=== PATIENT | female | born 1965 | race Hispanic/Latino ===

== ENCOUNTER 2018-04-23 18:24 | Inpatient (IN) | payer BC ==
[2018-04-23] MEDS ORDERED: Ondansetron PF 4 MG/2 ML Vial IVP PRN (18:26)
[2018-04-23] MEDS ORDERED: Ketorolac Tromethamine 60 MG/2 ML VIAL IM PRN (19:13)
--- NOTE | 2018-04-23 19:33 | PDOC.FPRHP ---
- History of Present Illness Chief Complaint: epigastric pain History of Present Illness: Ms. Jerome presents as direct admit from Dr. Lopez's office. Reports epigastric/RUQ pain that began suddenly this morning. Pain sharp, localized, feels like bloating and worsened throughout day. Had to leave work due to pain that caused her to moan. Took 2 ibuprofen. Last ate a small bit of sandwich at 11:15 this am. Presented to PCP and sent for RUQ US which showed gallbladder distention, common bile duct 0.7cm. Pain has now improved to 0/10, no discomfort in car ride here. Denies N/V/diarrhea, fever. Last week patient treated for URI with steroid injection and has been on amoxacillin. - Allergies/Adverse Reactions Allergies Allergy/AdvReac Type Severity Reaction Status Date / Time No Known Allergies Allergy Verified 04/23/18 20:53 - History PMHx: Hypothyroid, HLD, HTN PSHx: Hysterectomy with 1 ovary remaining FHx: father-pancreatic CA, DM. Mother-ovarian CA. Brother CAD Social: Denies tobacco or drug use. Social alcohol use. - Review of Systems General: reports: weight/appetite/sleep changes. denies: fever/chills ENT: denies: nasal congestion, rhinorrhea Respiratory: reports: cough. denies: shortness of breath Cardiovascular: denies: palpitation, edema Gastrointestinal: reports: abdominal pain. denies: nausea, vomiting, diarrhea, constipation Genitourinary: denies: incontinence Skin: denies: rashes, lesions Musculoskeletal: denies: pain, tenderness Neurological: denies: numbness, weakness - Vital signs BP: 147/78 HR: 62 RR: 16 Tmax: 98 Pox: 98% on RA - Physical Exam Constitutional: NAD, awake, alert and oriented HEENT: normocephalic and atraumatic Heart: RRR, normal S1/S2, no murmurs/rubs/gallops Lungs: CTAB, no respiratory distress Abdomen: soft, non-tender, no masses/distention Musculoskeletal: normal structure Neurological: no focal deficit Skin: no rash/lesions, good turgor Heme/Lymphatic: no unusual bruising or bleeding Psychiatric: normal mood and affect FMR H&P: A/P - Problem List (1) Acute cholecystitis Current Visit: Yes Status: Acute Code(s): K81.0 - ACUTE CHOLECYSTITIS (2) Common bile duct dilation Current Visit: Yes Status: Acute Code(s): K83.8 - OTHER SPECIFIED DISEASES OF BILIARY TRACT (3) HTN (hypertension) Current Visit: Yes Status: Chronic Code(s): I10 - ESSENTIAL (PRIMARY) HYPERTENSION (4) HLD (hyperlipidemia) Current Visit: Yes Status: Chronic Code(s): E78.5 - HYPERLIPIDEMIA, UNSPECIFIED (5) Hypothyroid Current Visit: Yes Status: Chronic Code(s): E03.9 - HYPOTHYROIDISM, UNSPECIFIED (6) Hyperbilirubinemia Current Visit: Yes Status: Acute Code(s): E80.6 - OTHER DISORDERS OF BILIRUBIN METABOLISM (7) Elevated transaminase level Current Visit: Yes Status: Acute Code(s): R74.0 - NONSPEC ELEV OF LEVELS OF TRANSAMNS & LACTIC ACID DEHYDRGNSE - Plan 52 yo F with PMH HTN, hypothyroid directly admitted by Dr. Lopez for epigastric/RUQ pain. Acute cholecystitis vs ascending cholangitis - RUQ US showed gallbladder distention and dilation with cholelithiasis, sludge , positive Coleman's sign. Borderline mild common bile duct dilatation at 0.7cm - pain now improved, no fever or white count - General surgery, Dr. Prather contacted by PCP. Will await further recommendations in am. - Blood cx pending - NPO, IVF LR @ 150 - Ketoralac and zofran prn - Started zosyn (04/23) Elevated transaminases - AST 696, ALT 421 - 2/2 above will monitor on morning CMP Hyperbilirubinemia - T bili 2.5 - 2/2 above, will monitor on morning CMP Hypothyroid - continue home synthroid when med rec complete HTN - continue home med when med rec complete HLD - continue home statin when med rec complete Diet: NPO, meds with sips Ppx: SCDs Code: FULL Dispo: admit to surgical floor inpatient FMR H&P: Upper Level - Pertinent history 52 y/o F presents as a direct admit from PCP's office from suspected acute cholecystitis. Was seen earlier today for evaluation of chills and cramping abdominal pain w/ radiation into her back and noted to have significant RUQ pain on exam. RUQ U/S w/ evidence of wall thickening, cholelithiaisis, biliary sludge, and borderline CBD at [address] Prather of general surgery was contacted by pt's PCP w/ plan to start on IV abx and IVF overnight w/ repeat LFT 's in the AM. - Pertinent findings RUQ U/S - 7 mm CBD, cholelithiasis and biliary sludge, GB wall thickening noted WBC - 10.8 Neut - 84.7% T. bili. 2.5 AST -696 ALT - 421 GFR - 70 GEN: NAD, resting in bed CARD: RRR, no mumur PULM: CTA-b/l GI: Normoactive BS, TTP RUQ, postive coleman's sign. Soft, no rigidity. Conscious guarding - Plan Date/Time: 04/23/181915 IMatthew MD, have evaluated this patient and agree with findings/plan as outlined by chemical engineering intern resident. Pertinent changes/additions are listed here. 52 y/o F w/: 1) Acute cholecystitis vs Ascending Cholangitis - Pt w/ chills, bilirubin >2 and borderling CBD distention noted on RUQ U/S along w/ cholelithiasis and GB wall thickening - Dr. Prather of general surgery contacted by Dr. Lopez for further evaluation - Will place patient on emperic abx coverage for enteric faustino w/ Zosyn and IVF w/ LR at 150 mL/Hr w/ strict I/O's - Obtain BCx - Repeat CMP and CBC in the AM to monitor leukocytosis and and LFT's - Will plan for biliary drainage per Gen surg or GI pending Gen surg recs within the first 24-48 hours - Pain control w/ IM toradol as to not cause undue contraction of the sphincter of oddi w/ morphine use 2) Other chronic medical problems per chemical engineering intern note Assessment and Plan discussed w/ Dr. Germaine Ledesma who is in agreement. Attending Addendum - Attending Addendum Date/Time: 04/23/182207 I personally evaluated the patient and discussed the management with Dr. Mardid and Dr. Dawson I agree with the History, Examination, Assessment and Plan documented above with any addition or exceptions noted below. 52 yo female with hx of HTN, HLD, and hypothyroidism admitted for epigastric pain. Patient seen earlier today by PCP. Concerns raised for gallbladder disease. Labs and ultrasound performed outpatient. Noted to be abnormal. Directly admitted for acute cholecystitis vs ascending cholangitis. Currently patient reports symptoms are controlled. Has not eaten since 11:00 today. Gen Surg notified. Will start empiric antibiotics and IVFs. Repeat labs in AM. Possible surg in AM vs endoscopic procedure. No evidence of acute abdomen on exam. Ismael
[2018-04-23] MEDS ORDERED: Calcium Carbonate 500 MG ChewTAB PO PRN (20:05)
[2018-04-23] MEDS: Lactated Ringer's 1,000 ML IV SCH ×2 (21:14→23:27)
[2018-04-23] MEDS: Piperacillin/Tazobactam 3.375 GM in Sodium Chloride 0.9% 100 ML IVPB SCH ×2 (21:15→23:30)
[2018-04-23] MEDS: Ketorolac Tromethamine 30 MG/ML VIAL IM SCH (21:16)
[2018-04-23] MEDS ORDERED: Ketorolac Tromethamine 30 MG/ML VIAL IM SCH (23:30)
[2018-04-23 23:34] VITALS: BMI 37.9
[2018-04-24] MEDS: Ketorolac Tromethamine 30 MG/ML VIAL IM SCH
--- NOTE | 2018-04-24 05:49 | PDOC.FM ---
- Subjective Subjective: Pain is resolved this morning. She denies nausea, vomiting, and abdominal pain. She states she did well overnight. - Objective MAR Reviewed: Yes Vital Signs & Weight: Vital Signs (12 hours) Temp Pulse Resp BP Pulse Ox 04/24/18 04:00 98.1 F 64 16 122/72 98 04/24/18 00:00 98.7 F 69 16 145/83 H 97 04/23/18 20:00 98 F 62 16 147/78 H 98 04/23/18 19:48 98.2 F 62 18 128/73 98 Weight Weight 97.069 kg Result Diagrams: 04/24/18 05:04 04/24/18 05:15 Phys Exam - Physical Examination Constitutional: NAD HEENT: moist MMs Neck: no nodes, no JVD Respiratory: no wheezing, no rales, clear to auscultation bilateral Cardiovascular: RRR, no significant murmur Gastrointestinal: soft, non-tender, no distention, positive bowel sounds Musculoskeletal: no edema, pulses present Neurological: moves all 4 limbs Psychiatric: normal affect, A&O x 3 Skin: cap refill <2 seconds Dx/Plan (1) Acute cholecystitis Code(s): K81.0 - ACUTE CHOLECYSTITIS Status: Acute (2) Common bile duct dilation Code(s): K83.8 - OTHER SPECIFIED DISEASES OF BILIARY TRACT Status: Acute (3) Hyperbilirubinemia Code(s): E80.6 - OTHER DISORDERS OF BILIRUBIN METABOLISM Status: Acute (4) HLD (hyperlipidemia) Code(s): E78.5 - HYPERLIPIDEMIA, UNSPECIFIED Status: Chronic (5) HTN (hypertension) Code(s): I10 - ESSENTIAL (PRIMARY) HYPERTENSION Status: Chronic (6) Hypothyroid Code(s): E03.9 - HYPOTHYROIDISM, UNSPECIFIED Status: Chronic - Plan Plan: This is a 52 yo female with a pmh of HTN and hypothyroidism Acute cholecystitis with common bile duct dilatation -RUQ US shows gallbladder distension and dilatation with cholelithiasis, sludge , positive cutler's sign. -CBD is dilated at 7mm -Afebrile overnight -General surgery, Dr. Prather contacted by PCP. We will appreciate his recommendations -Blood cultures pending -NPO, LR at 150 -Zosyn (04/23) -We will add morphine if pt begins having worsening pain Elevated transaminase -AST 696, ALT 421, Likely 2/2 to above Hyperbilirubinema -Total bili 2.5, likely 2/2 to above Hypothyroidism -Continue home meds when we obtain med list HTN -Continue home meds when we obtain med list HLD -Continue home meds when we obtain med list
[2018-04-24 05:51] LABS: #Basophils 0.1 thou/uL (0.0-0.2); #Eosinphils 0.4 thou/uL (0.0-0.7); #Monocytes 0.5 thou/uL (0.11-0.59); #Neutrophils 3.7 thou/uL (1.40-6.50); %Basophils 1.3 % (0.0-1.0); %Eosinophils 5.7 % (0.0-10.0); %Lymphocytes 29.9 % (21.0-51.0); %Monocytes 7.1 % (0.0-10.0); Hemoglobin 14.2 g/dL (12.0-16.0); Mean Corpuscular HGB CONC 32.8 g/dL (32.0-36.0); Mean Corpuscular Hemoglobin 29.5 pg (27.0-31.0); Mean Corpuscular Volume 89.8 fL (78.0-98.0); Mean Platelet Volume 8.3 fL (7.4-10.4); Platelet Count 250 thou/uL (130-400); RBC Distribution Width 11.3 % (11.5-14.5); Red Blood Cell (RBC) Count 4.83 mill/uL (4.20-5.40); White Blood Cell (WBC) Count 6.7 thou/uL (4.8-10.8)
[2018-04-24] MEDS: Piperacillin/Tazobactam 3.375 GM in Sodium Chloride 0.9% 100 ML IVPB SCH ×3 (06:07→11:42)
[2018-04-24 06:24] LABS: ALT (SGPT) 764 U/L (8-55); AST (SGOT) 791 U/L (5-34); Albumin 3.9 g/dL (3.5-5.0); Alkaline Phosphatase 182 U/L (40-150); Anion Gap 10 mmol/L (10-20); BUN (Urea Nitrogen) 11 mg/dL (7.0-18.7); Bilirubin, Total 2.2 mg/dL (0.2-1.2); Calc. Creatinine Clearance 115 mL/min (70-130); Calcium 9.9 mg/dL (7.8-10.44); Carbon Dioxide 26 mmol/L (22-29); Chloride 103 mmol/L (98-107); Estimated GFR-MDRD 66; Globulin 3.3 g/dL (2.4-3.5); Glucose 106 mg/dL (70-105); Potassium 4.4 mmol/L (3.5-5.1); Protein, Total 7.2 g/dL (6.0-8.3); Sodium 135 mmol/L (136-145)
[2018-04-24] MEDS: Lactated Ringer's 1,000 ML IV SCH ×3 (06:24→14:28)
--- NOTE | 2018-04-24 13:00 | PRG ---
DATE OF SERVICE: 04/24/2018 ADDENDUM: This is an addendum to the note of Dr. Lio Parker. Ms. Jerome is a very pleasant female, who is admitted with abdominal pain late yesterday. She has been found to have acute cholecystitis and has already been seen by the surgeon. She also has an elevated bilirubin and dilated common duct and suggesting the possibility of choledocholithiasis. An intraoperative cholangiogram will be performed and she will be taken to surgery at approximately 2 o'clock this afternoon. We will continue to follow with the surgery team. Job ID: [id number]
[2018-04-24] MEDS ORDERED: Iothalamate Meglumine 60% 50 ML VIAL FS ONE (14:51)
[2018-04-24] MEDS ORDERED: Bupivacaine/Epinephrine 0.25% 30 ML VIAL ONE (14:51)
[2018-04-24] MEDS ORDERED: Famotidine/PF 20 mg/2ml Vial ONE (15:02)
[2018-04-24] MEDS ORDERED: Fentanyl 100 MCG/2 ML VIAL ONE ×3 (15:02→16:33)
--- NOTE | 2018-04-24 15:06 | CON ---
DATE OF CONSULTATION: 04/24/2018 CHIEF COMPLAINT: Upper abdominal pain. HISTORY OF PRESENT ILLNESS: Ms. Jerome is a 52-year-old female, no known history of gallstones, jaundice, pancreatitis, who presents with acute onset of upper abdominal pain, epigastric, right upper quadrant. Described as sharp 8/10, associated with nausea, no vomiting, admitted to the hospital from Dr. Lopez's office overnight. Pain is actually improved today. No nausea. She only has pain on exam. PAST MEDICAL HISTORY: Includes hypothyroid and hypertension. PAST SURGICAL HISTORY: Hysterectomy. SOCIAL HISTORY: Social alcohol use. No smoking or other drugs. REVIEW OF SYSTEMS: Ten-system review of system otherwise negative unless described above. PHYSICAL EXAMINATION: VITAL SIGNS: Blood pressure is 115/61, pulse 60, respirations 18, and temperature 98.1. HEENT: Sclerae anicteric. Oropharynx clear. NECK: No adenopathy. CHEST: Clear. HEART: Regular rate and rhythm. ABDOMEN: Soft, tender in the right upper quadrant, localized guarding. No rebound. No abdominal hernias. EXTREMITIES: No ischemia or edema to the extremities. LABORATORY DATA: White cell count is 6, hemoglobin 14, and platelet count is 250. Sodium 135, potassium 4.4, creatinine 0.9, glucose 106, bilirubin is down from 2.5 to 2.2, and alkaline phosphatase 182. ASSESSMENT: Acute cholecystitis with elevated liver function tests. PLAN: Laparoscopic cholecystectomy with intraoperative cholangiogram. Risks, benefits, and alternatives were discussed. She has consent. We will do this today. Job ID: [id number]
[2018-04-24] MEDS ORDERED: Promethazine HCl 25 MG/ML VIAL IM PRN ×2 (15:57→16:38)
[2018-04-24] MEDS ORDERED: Promethazine HCl 25 MG/ML VIAL SLOW IVP PRN (15:57)
[2018-04-24] MEDS ORDERED: HYDROmorphone 2 MG/ML VIAL SLOW IVP PRN (15:57)
[2018-04-24] MEDS ORDERED: Meperidine HCl/PF 25 MG/ML VIAL SLOW IVP PRN (15:57)
[2018-04-24] MEDS ORDERED: hydrALAZINE 20 MG/ML VIAL SLOW IVP PRN (16:38)
[2018-04-24] MEDS ORDERED: Mag-Al 1200 mg/1200 mg/30 ML UDCUP PO PRN (16:38)
[2018-04-24] MEDS ORDERED: Calcium Carbonate 500 MG ChewTAB PO PRN (16:38)
[2018-04-24] MEDS ORDERED: Ondansetron PF 4 MG/2 ML Vial IVP PRN (16:38)
[2018-04-24] MEDS ORDERED: Dextrose 50% Abboject 50 ML SYRINGE SLOW IVP PRN (16:38)
[2018-04-24] MEDS ORDERED: Dextrose 5% in Water 1,000 ML IV PRN (16:38)
[2018-04-24] MEDS ORDERED: Morphine 2 MG/ML SYRINGE SLOW IVP PRN (17:03)
[2018-04-24] MEDS ORDERED: Morphine 4 MG/ML VIAL SLOW IVP PRN (17:15)
[2018-04-24] MEDS: D5 1/2 NS w/20 mEq KCL 1,000 ML IV SCH (17:45)
--- NOTE | 2018-04-24 18:16 | RAD ---
CHOLANGIOGRAM IN SURGERY 04/24/18 COMPARISON: Gallbladder ultrasound 04/23/18. HISTORY: Cholelithiasis with enlargement of the common bile duct. FINDINGS/IMPRESSION: Two limited intraoperative fluoroscopic views from a cholangiogram taken in surgery were performed. C ontrast is seen within the cystic duct, common bile duct, and duodenum. No obvious filling defects ar e seen on the last image. POS: OSMAR
[2018-04-24] MEDS: HYDROcodone/Acetaminophen 10/325 mg Tablet PO PRN (19:35)
[2018-04-24] MEDS: Famotidine 20 MG TAB PO SCH (20:33)
[2018-04-24] MEDS ORDERED: Atorvastatin Calcium 20 MG TAB PO SCH (21:00)
[2018-04-24] MEDS: Famotidine/PF 20 mg/2ml Vial SLOW IVP SCH (23:01)
[2018-04-25] MEDS: HYDROcodone/Acetaminophen 10/325 mg Tablet PO PRN ×2 (01:09→10:27)
--- NOTE | 2018-04-25 02:40 | OP ---
DATE OF PROCEDURE: 04/24/2018 PREOPERATIVE DIAGNOSES: 1. Acute cholecystitis. 2. Elevated liver function tests. POSTOPERATIVE DIAGNOSIS: 1. Acute cholecystitis. 2. Elevated liver function tests. PROCEDURE PERFORMED: Laparoscopic cholecystectomy with intraoperative cholangiogram. ANESTHESIA: General. ESTIMATED BLOOD LOSS: Minimal. COMPLICATIONS: None. SPECIMEN: Gallbladder. FINDINGS: Acute cholecystitis. Cholangiogram shows dilated common bile duct with no obvious distal common bile duct obstruction. DESCRIPTION OF PROCEDURE: The patient was taken to the operating room, laid in supine position on the operating room table. After general anesthetic was obtained, the abdomen was prepped and draped in a sterile fashion. A straight incision was made above the umbilicus. Cautery was used to dissect down to and score the fascia. Abdominal cavity was entered bluntly using Buffy clamp. Holding stitch of PDS was placed on each side of the fascia. Clayton trocar was placed. High-flow pneumoperitoneum was obtained. Upper midline 5 mm port and 2 right upper quadrant 5 mm ports were placed under direct visualization. Gallbladder was retracted from the gallbladder fossa. The peritoneum was opened anteriorly and posteriorly. The critical view triangle was seen showing only the cystic duct and cystic artery branching medial to lateral. There were no other branching structures. A clip was placed on the cystic duct. A small ductotomy was made just proximal to that. A cholangiocatheter was brought in through a separate stab incision, and a cholangiogram was performed, which showed good contrast flow into the duodenum. There was initially a question of filling defect, but it appeared that they disappeared with further contrast. There was good contrast flow into the duodenum without obstruction. Cholangiocatheter was removed, and three clips were placed proximally on the cystic duct, it was cut using laparoscopic scissors. Cystic artery was taken using two clips proximally and one clip distally, and cut using laparoscopic scissors. Cautery was used to dissect the gallbladder out of the gallbladder fossa. Gallbladder was placed in an EndoCatch bag and brought out through the Clayton. There was no bleeding in the liver bed. The right upper quadrant was irrigated using sterile solution until returns were clear. All port sites were infiltrated using local anesthetic. All ports were removed under camera visualization. Pneumoperitoneum was let down. PDS used to close the fascial defect above the umbilicus. All incisions were irrigated and closed using 4-0 Monocryl and Dermabond. The patient was sent to Recovery in stable condition. All instrument counts, needle counts, and lap counts were correct. Job ID: [id number]
[2018-04-25] MEDS: D5 1/2 NS w/20 mEq KCL 1,000 ML IV SCH (04:49)
--- NOTE | 2018-04-25 05:22 | PDOC.FM ---
- Subjective Subjective: Pt states she is doing better. Her pain is improved. She denies nausea, vomiting , or SOB. She tolerated PO yesterday. - Objective MAR Reviewed: Yes Vital Signs & Weight: Vital Signs (12 hours) Temp Pulse Resp BP Pulse Ox 04/25/18 04:00 98.1 F 57 L 16 135/89 95 04/24/18 23:37 98.4 F 58 L 16 121/65 96 04/24/18 20:33 95 04/24/18 20:00 98.2 F 84 16 128/80 95 04/24/18 19:38 96 Weight Weight 97.069 kg I&O: 04/23/18 04/24/18 04/25/18 06:59 06:59 06:59 Intake Total 1790 Balance 1790 Result Diagrams: 04/25/18 05:41 04/25/18 05:41 Phys Exam - Physical Examination Constitutional: NAD HEENT: moist MMs Neck: no JVD, supple Respiratory: no wheezing, clear to auscultation bilateral Cardiovascular: RRR, no significant murmur Gastrointestinal: soft, no distention, positive bowel sounds mild diffuse tenderness, no rebound Musculoskeletal: no edema, pulses present Neurological: moves all 4 limbs Psychiatric: normal affect, A&O x 3 Skin: cap refill <2 seconds Dx/Plan (1) Acute cholecystitis Code(s): K81.0 - ACUTE CHOLECYSTITIS Status: Acute (2) Common bile duct dilation Code(s): K83.8 - OTHER SPECIFIED DISEASES OF BILIARY TRACT Status: Acute (3) Hyperbilirubinemia Code(s): E80.6 - OTHER DISORDERS OF BILIRUBIN METABOLISM Status: Acute (4) HLD (hyperlipidemia) Code(s): E78.5 - HYPERLIPIDEMIA, UNSPECIFIED Status: Chronic (5) HTN (hypertension) Code(s): I10 - ESSENTIAL (PRIMARY) HYPERTENSION Status: Chronic (6) Hypothyroid Code(s): E03.9 - HYPOTHYROIDISM, UNSPECIFIED Status: Chronic - Plan Plan: This is a 52 yo female with a pmh of HTN and hypothyroidism Acute cholecystitis with common bile duct dilatation -RUQ US shows gallbladder distension and dilatation with cholelithiasis, sludge , positive cutler's sign. -CBD is dilated at 7mm -Dr. Prather performed laparoscopic cholecystectomy with intraoperative cholangiogram -Pain is being controlled with norco, no break through morphine needed at this time -Fat restricted diet, if pt tolerates this well, we will likely discharge her later this morning Elevated transaminase -The are trending down Hyperbilirubinema -WNL Hypothyroidism -Continue home meds when we obtain med list HTN -Continue home meds when we obtain med list HLD -Continue home meds when we obtain med list
[2018-04-25] MEDS ORDERED: Levothyroxine Sodium 112 MCG TAB PO SCH (06:00)
[2018-04-25] MEDS ORDERED: Levothyroxine Sodium 125 MCG TAB PO SCH (06:00)
[2018-04-25 06:28] LABS: #Eosinphils 0.1 thou/uL (0.0-0.7); #Lymphocytes 1.6 thou/uL (1.20-3.40); #Monocytes 0.5 thou/uL (0.11-0.59); #Neutrophils 6.7 thou/uL (1.40-6.50); %Basophils 0.3 % (0.0-1.0); %Eosinophils 0.6 % (0.0-10.0); %Lymphocytes 17.7 % (21.0-51.0); %Monocytes 5.1 % (0.0-10.0); %Neutrophils 76.3 % (42.0-75.0); Hemoglobin 12.3 g/dL (12.0-16.0); Mean Corpuscular HGB CONC 32.9 g/dL (32.0-36.0); Mean Corpuscular Volume 91.3 fL (78.0-98.0); Mean Platelet Volume 8.4 fL (7.4-10.4); Platelet Count 235 thou/uL (130-400); RBC Distribution Width 11.3 % (11.5-14.5); Red Blood Cell (RBC) Count 4.09 mill/uL (4.20-5.40); White Blood Cell (WBC) Count 8.8 thou/uL (4.8-10.8)
[2018-04-25 06:47] LABS: ALT (SGPT) 477 U/L (8-55); AST (SGOT) 223 U/L (5-34); Albumin 3.5 g/dL (3.5-5.0); Alkaline Phosphatase 151 U/L (40-150); Anion Gap 10 mmol/L (10-20); BUN (Urea Nitrogen) 11 mg/dL (7.0-18.7); Bilirubin, Total 0.6 mg/dL (0.2-1.2); Calc. Creatinine Clearance 124 mL/min (70-130); Carbon Dioxide 28 mmol/L (22-29); Chloride 106 mmol/L (98-107); Estimated GFR-MDRD 73; Globulin 2.7 g/dL (2.4-3.5); Glucose 126 mg/dL (70-105); Potassium 4.2 mmol/L (3.5-5.1); Protein, Total 6.2 g/dL (6.0-8.3); Sodium 140 mmol/L (136-145)
[2018-04-25] MEDS: Famotidine 20 MG TAB PO SCH (08:58)
[2018-04-25] MEDS ORDERED: Fluticasone Propionate Nasal Spray 16 gm Bottle NASAL SCH (09:00)
[2018-04-25] MEDS: Famotidine/PF 20 mg/2ml Vial SLOW IVP SCH (09:00)
[2018-04-25] MEDS ORDERED: Triamterene/Hydrochlorothiazide 37.5 mg/25 mg Tablet PO SCH (09:00)
--- NOTE | 2018-04-25 12:06 | PRG ---
DATE OF SERVICE: 04/25/2018 SUBJECTIVE: Ms. Jerome is postop day #1 from her laparoscopic cholecystectomy yesterday. Her intraoperative cholangiogram did not show any filling defects. She is tolerating her diet and will likely be discharged later today if okay with Surgery. Job ID: [id number]
[2018-04-25 12:18] VITALS: BP 122/76; TEMP 98.6
--- NOTE | 2018-04-26 11:29 | DIS ---
DATE OF ADMISSION: 04/23/2018 DATE OF DISCHARGE: 04/25/2018 ADMITTING ATTENDING: Germaine Ledesma MD DISCHARGE ATTENDING: Brenton Montez MD RESIDENT: Lio Parker DO CONSULTS: General Surgery, Dr. Prather. PROCEDURES: 1. Gallbladder ultrasound showing gallbladder wall distension, dilation with cholelithiasis as well as gallbladder sludge, positive Coleman sign. CBD is dilated at 7 mm. 2. Intraoperative cholangiogram showing contrast within the cystic duct, common bile duct and duodenum with no obvious filling defects. 3. Laparoscopic cholecystectomy with intraoperative cholangiogram. PRIMARY DIAGNOSIS: Cholecystitis secondary to cholelithiasis. SECONDARY DIAGNOSES: Elevated transaminases, hyperbilirubinemia, hypothyroidism, hypertension, hyperlipidemia. DISCHARGE MEDICATIONS: 1. Pepcid 20 mg p.o. q.12 hours. 2. Tramadol 50 mg p.o. q.6 hours p.r.n. pain. 3. Maalox 15 mL p.o. q.6 hours p.r.n. 4. Pepcid. 5. Atorvastatin 10 mg p.o. at bedtime. 6. Vitamin D 5000 mg p.o. at bedtime. 7. Flonase 1 spray per nostril daily. 8. Levothyroxine 112 mcg p.o. daily. 9. Sertraline 100 mg p.o. daily. 10. Triamterene/hydrochlorothiazide 37.5/25 mg one tab p.o. daily. DISCONTINUED MEDICATIONS: None. BRIEF HISTORY OF PRESENT ILLNESS/HOSPITAL COURSE: This is a direct admit from Dr. Ledesma's office with concern for ascending cholangitis due to hyperbilirubinemia, abdominal pain, as well as subjective chills. acute cholecystitis ascending cholangitis due to the patient's presentation. Surgery was consulted and the above procedures were performed. The patient tolerated the procedures well and tolerated diet prior to discharge. The patient's pain was controlled with oral medications prior to discharge. DISPOSITION: Stable. DISCHARGE INSTRUCTIONS: 1. Location: Home. 2. Diet: Diabetic, low fat. 3. Activity: No heavy lifting. 4. Followup: With Dr. Lopez in [address] Prather in 14 days. Job ID: [id number]
== END 2018-04-25 12:55 | disposition home or self-care (01) | DRG 419 ==
LOC: SURG A 19:38
PROVIDERS: ADMIT Family Medicine; ATTEND Family Medicine
PROC: 0FT44ZZ Resection of Gallbladder, Percutaneous Endoscopic Approach (ICD-10-PCS; principal; 2018-04-24)
PROC: BF101ZZ Fluoroscopy of Bile Ducts using Low Osmolar Contrast (ICD-10-PCS; 2018-04-24)
DX: K80.00 Calculus of gallbladder with acute cholecystitis without obstruction (principal); E03.9 Hypothyroidism, unspecified; I10 Essential (primary) hypertension; E78.5 Hyperlipidemia, unspecified; E80.6 Other disorders of bilirubin metabolism; R74.0 Nonspecific elevation of levels of transaminase and lactic acid dehydrogenase [LDH]; K83.8 Other specified diseases of biliary tract
CPT/HCPCS: 36415; 47532; 80053; 85025; 87040; 88304; 96374; J0131; J1610; J1885; J2543; J3010; J7050; Q9961; S0028

== ENCOUNTER 2018-10-25 10:29 | Outpatient (CLI) | payer BC ==
--- NOTE | 2018-10-25 11:19 | MMO ---
Bilateral MAMMO Bilat Screen [facility]. CLINICAL HISTORY: Patient is 52 years old and is seen for screening. VIEWS: The views performed were: bilateral craniocaudal with tomosynthesis and bilateral mediolateral oblique with tomosynthesis. MAMMOGRAM FINDINGS: The breasts are heterogeneously dense, which could obscure a lesion on mammography. There are no suspicious masses, suspicious calcifications, or new areas of architectural distortion. IMPRESSION: THERE IS NO MAMMOGRAPHIC EVIDENCE OF MALIGNANCY. A ROUTINE FOLLOW-UP MAMMOGRAM IN 1 YEAR IS RECOMMENDED. THE RESULTS OF THIS EXAM WERE SENT TO THE PATIENT. ACR BI-RADS Category 1 - Negative MAMMOGRAPHY NOTE: 1. A negative mammogram report should not delay a biopsy if a dominant of clinically suspicious mass is present. 2. Approximately 10% to 15% of breast cancers are not detected by mammography. 3. Adenosis and dense breasts may obscure an underlying neoplasm.
== END 2018-10-25 10:30 | disposition home or self-care (01) ==
LOC: BICMAMMO 10:29
PROVIDERS: ATTEND Family Medicine
DX: Z12.31 Encounter for screening mammogram for malignant neoplasm of breast (principal)
CPT/HCPCS: 77063; 77067

== ENCOUNTER 2019-11-25 10:48 | Outpatient (CLI) | payer BC ==
--- NOTE | 2019-11-25 13:26 | MMO ---
Bilateral MAMMO Bilat Screen [facility]. CLINICAL HISTORY: Patient is 54 years old and is seen for screening. VIEWS: The views performed were: bilateral craniocaudal with tomosynthesis and bilateral mediolateral oblique with tomosynthesis. FILMS COMPARED: The present examination has been compared to a prior imaging study performed at [facility] on 10/25/2018. This study has been interpreted with the assistance of computer-aided detection. MAMMOGRAM FINDINGS: The breasts are heterogeneously dense, which could obscure a lesion on mammography. There are no suspicious masses, suspicious calcifications, or new areas of architectural distortion. IMPRESSION: THERE IS NO MAMMOGRAPHIC EVIDENCE OF MALIGNANCY. A ROUTINE FOLLOW-UP MAMMOGRAM IN 1 YEAR IS RECOMMENDED. THE RESULTS OF THIS EXAM WERE SENT TO THE PATIENT. ACR BI-RADS Category 1 - Negative MAMMOGRAPHY NOTE: 1. A negative mammogram report should not delay a biopsy if a dominant of clinically suspicious mass is present. 2. Approximately 10% to 15% of breast cancers are not detected by mammography. 3. Adenosis and dense breasts may obscure an underlying neoplasm. Reported by: LA MOODY MD Electonically Signed: [id number]
== END 2019-11-25 10:49 | disposition home or self-care (01) ==
LOC: BICMAMMO 10:48
PROVIDERS: ATTEND Family Medicine
DX: Z12.31 Encounter for screening mammogram for malignant neoplasm of breast (principal)
CPT/HCPCS: 77063; 77067

== ENCOUNTER 2022-06-17 13:35 | Outpatient (CLI) | payer BC | END 2022-06-17 13:36 | disposition home or self-care (01) | LOC: BICMAMMO 13:35 | PROVIDERS: ATTEND Family Medicine | DX: Z12.31 Encounter for screening mammogram for malignant neoplasm of breast (principal) | CPT/HCPCS: 77063; 77067 ==

== ENCOUNTER 2023-07-03 10:05 | Outpatient (CLI) | payer BC | END 2023-07-03 10:06 | disposition home or self-care (01) | LOC: BICMAMMO 10:05 | PROVIDERS: ATTEND Family Medicine | DX: Z12.31 Encounter for screening mammogram for malignant neoplasm of breast (principal) | CPT/HCPCS: 77063; 77067 ==